=== PATIENT | female | born 1965 | race Caucasian/White ===

== ENCOUNTER → 2022-04-05 14:53 | Outpatient (CLI) | payer MEDICARE, SELFPAY ==
--- NOTE | 2022-04-05 14:55 | CA_ITS ---
APPROVED REPORT EXAM: Comprehensive 2D, Doppler, and color-flow Echocardiogram Extension Course Coordinator: Carol Landry RVT Ht: 5 ft 4 in Wt: 225lbs BSA: 2.06 BP: 106/83 mmHg Indications: A-FIB,CAD,CABG,TAKAYASU DISEASE,HTN,HLD TDS 2D Dimensions LVOT 2.11 cm (M/F) 1.5-2.5 LA Volume 88.90 mL LA Volume Index 43.36 mL/m2 (M/F) 16-34 M-Mode Dimensions RVDd 2.41 cm (0.9-2.6) LA Diam 5.15 cm (1.9-4.0) LVDd 5.53 cm (3.5-5.7) Ao Diam 2.48 cm (2.0-3.7) LVDs 4.16 cm (3.5-5.7) IVSd 0.46 cm (0.6-1.1) PWd 0.72 cm (0.6-1.1) EF (Teich) 48.60% FS 24.80% EDV (Teich) 149.30 mL TAPSE 1.41 (<1.7) ESV (Teich) 76.80 mL LV Diastology MED E' 10.00 (< 7 cm/sec) LAT E' 10.30 (<10 cm/sec) Aortic Valve AO Peak GR. 4.20 mmHg Pulmonary Valve PV Peak Velocity 73.00 (50-150 cm/s) Tricuspid Valve TR P. Velocity 305.00 cm/s RAP Estimate 10.00 mmHg RVSP 47.30 mmHg Left Ventricle Technically difficult study because of the patient factors and poor acoustic windows. Left atrium is moderately enlarged, left ventricle is normal size, estimated ejection fraction approximately 50%, there is abnormal septal motion. Diastolic parameters are inconclusive. Right Ventricle Right atrium and right ventricle moderately enlarged, contractility of the right ventricle is normal. Aortic Valve Aortic valve is thickened and calcified without aortic stenosis aortic insufficiency. Mitral Valve Mitral valve grossly normal, there is mild mitral regurgitation. Tricuspid Valve Tricuspid valve leaflets are minimally thickened, there is moderate to severe tricuspid regurgitation, calculated right ventricular systolic pressure is 47 mmHg. Pulmonic Valve Pulmonic valve is poorly visualized. Great Vessels Aortic root is normal size. Inferior vena cava is normal size with normal inspiratory collapse. Pericardium No significant pericardial effusion noted. Conclusion 1. Biatrial enlargement, normal left ventricular size, estimated ejection fraction approximately 50% with no regional wall motion abnormality, endocardial cells are poorly visualized., There is abnormal septal motion. Diastolic parameters are inconclusive. 2. Moderately enlarged right ventricle with normal contractility. 3. Thickened and calcified aortic valve without aortic stenosis or aortic insufficiency. 4. Mild mitral and moderate to severe tricuspid regurgitation, calculated right ventricular systolic pressure 47 mmHg. 5. No significant pericardial effusion. 6. Inferior cava normal size with normal inspiratory collapse. Electronically signed by : Fidel Duran MD 04/05/2022 20:32:47
== END ==
PROVIDERS: PCP Internal Medicine; Visit Provider Internal Medicine
DX: I11.0 Hypertensive heart disease with heart failure; I25.10 Atherosclerotic heart disease of native coronary artery without angina pectoris; I48.91 Unspecified atrial fibrillation; I50.32 Chronic diastolic (congestive) heart failure; I65.09 Occlusion and stenosis of unspecified vertebral artery; I77.1 Stricture of artery; M31.4 Aortic arch syndrome [Takayasu]; E78.49 Other hyperlipidemia
CPT/HCPCS: 93306

== ENCOUNTER → 2022-04-18 07:57 | Outpatient (CLI) | payer MEDICARE, SELFPAY ==
--- NOTE | 2022-04-18 07:58 | NM_ITS ---
APPROVED REPORT Exam: Nuclear Stress Test Indication: SOB, Abnormal EKG, Afib, CAD, CABG Patient Location: Outpatient Stress Tech: Sania Roman ND Tech:Pebbles Mello, ARRT, RT (R)(N) Ht: 5 ft 4 in Wt: 220 lbs Bra Size: D HR: 85 bpm BP: 111/88 mmHg BSA: 2.04 m2 TID: 1.15 BMI: 37.7 History: SOB, Abnormal EKG, Afib, CAD, CABG Procedure: Patient received a 0.4 mg of intravenous Lexiscan, resting heart rate 85 bpm, resting blood pressure 111/88 mmHg, with Lexiscan maximum heart rate achived was 152 bpm which is Less than 85 % of the maximum predicted heart rate and blood pressure was 111/88 mmHg. With Lexiscan, patient denied any complaint of chest pain. Electrocardiogram Resting electrocardiogram shows A. fib, with Lexiscan less than 1.[address] segment depression noted from the baseline EKG. The EKG portion of the Lexiscan is nondiagnostic. Cardiac Stress and Resting SPECT Images: Cardiac Stress and Resting SPECT images were obtained using technetium 99m Myoview 31.7 mCi stress and 10.05 mCi at rest. Gated SPECT for analysis of segmental wall motion and calculation of the ejection fraction also done. Cardiac stress and rest SPECT images show reversible ischemia involving the anterior and apical wall, computer derived ejection fraction is 49% with mild anterior apical wall hypokinesis, right ventricle is normal size and contractility. Conclusion: 1. The EKG portion of the Lexiscan is nondiagnostic. 2. Scintigraphic evidence of reversible ischemia involving the anterior and apical wall, computer derived ejection fraction is 49% with segmental wall motion abnormality described above, right ventricle is normal size and contractility. 3. Abnormal Lexiscan Myoview study. Electronically signed by : Fidel Duran MD 04/19/2022 12:14:15
--- NOTE | 2022-04-18 10:09 | CA_ITS ---
APPROVED REPORT Exam: Pharmacologic Technologist: Sania Bonilla, Ht: 5 ft 4 in Wt: 225 lbs BSA: 2.06 m2 HR: 88 bpm BP: 111/88 mmHg Medical History Medications: Lisinopril,,,,, Omeprazole,,,,, Aspirin,,,,, Atorvastatin,,,,, Carvedilol,,,,, Effient,,,,, Nitroglycerin,,,,, CiLostazol,,,,, Actemra,,,,, Stress Test Details Test: LEXISCAN Reason for pharmacologic stress test: physical limitation. HR Resting HR: 85 bpm Max Heart Rate (APMHR): 161.913403 bpm Max HR Achieved: 152 bpm Target HR (85% APMHR): 136.191746 bpm % of APMHR: 94.41 Recovery HR: 84 bpm BP Resting BP: 111/88 mmHg Max BP: 111/88 mmHg Recovery BP: 105.0/70.0 mmHg ECG Resting ECG: A-fib, low voltage QRS, NS T wave abns Clinical Exercise duration: 04:01 min Highest Stage Achieved: Exercise capacity: 1.0 METs Stress ECG Conclusion Symptoms: Mild SOA & stomach discomfort, lightheaded. No CP. Arrhythmias/Ectopy: A-fib throughout. ST-T Changes: No significant changes. Conclusion: Unremarkable Lexiscan stress. Myoview images reported separately. Test Summary REST . . . . . . . Resting REST 02:36 . . 85 . 111/ 88 . . Stage 1 01:00 . . 104 . . . . Stage 2 01:00 . . 144 . . . . Stage 3 01:00 . . 128 . 98/ 72 . . Stage 4 01:00 . . 119 . 110/ 66 . . Stage 4 01:01 . . 114 . 110/ 66 . Stop exercise at 04:01 RECOVERY 01:00 . . 111 . . . . RECOVERY 02:00 . . 115 . 106/ 66 . . RECOVERY 03:00 . . 112 . 106/ 66 . . RECOVERY 04:00 . . 104 . 110/ 62 . . RECOVERY 05:00 . . 101 . 110/ 62 . . RECOVERY 06:00 . . 101 . 110/ 62 . . RECOVERY 07:00 . . 97 . 110/ 62 . . RECOVERY 08:00 . . 105 . 110/ 62 . . RECOVERY 09:00 . . 105 . 110/ 62 . . RECOVERY 09:59 . . 105 . 105/ 70 . . Electronically signed by : Fidel Duran MD 04/19/2022 11:40:25
--- NOTE | 2022-04-18 11:18 | HMH.ITSHM ---
Current Home Medications as stated by this patient Eusebia Haney or national sales representative. []TOCILIZUMAB SPIRONOLACTONE RIVAROXABAN OMEPRAZOLE NITRO LISINOPRIL FUROSEMIDE CLOPIDOGREL CARVEDILOL ATORVASTATIN ASA
== END ==
PROVIDERS: PCP Internal Medicine; Visit Provider Internal Medicine
DX: R93.1 Abnormal findings on diagnostic imaging of heart and coronary circulation; I20.8 Other forms of angina pectoris
CPT/HCPCS: 78452; 93017; A9502; J2785

== ENCOUNTER → 2022-04-22 12:22 | Outpatient (CLI) | payer MEDICARE, SELFPAY ==
[2022-04-22 12:38] LABS: MANUAL DIFFERENTIAL MANUAL DIFFERENTIAL (MANUAL DIFF)
[2022-04-22 13:14] LABS: Basophils # 0.1 K/mm3 (0-0.2); Eosinophils # 0.1 K/mm3 (0.0-0.4); Eosinophils % 1.4 % (0.1-12.0); Hematocrit 38.4 % (37.0-47.0); Hemoglobin 12.5 g/dL (12.2-16.2); Lymphocytes # 1.1 K/mm3 (0.7-4.5); Lymphocytes % 24.9 % (10-50); Mean Corpuscular HGB Conc 32.6 g/dL (31.8-35.4); Mean Corpuscular Hemoglobin 28.6 pg (27.0-31.2); Mean Corpuscular Volume 87.9 fl (81-99); Mean Platelet Volume 7.9 fl (7.4-10.4); Monocytes # 0.3 K/mm3 (0.1-1.0); Monocytes % 7.5 % (1.7-9.3); Neutrophils # 2.9 K/mm3 (1.8-7.8); Neutrophils % 65.2 % (37.0-80.0); Platelet Count 315 K/mm3 (142-424); Red Blood Count 4.37 M/mm3 (4.20-5.40); Red Cell Distribution Width 14.1 % (11.5-17.5); White Blood Count 4.5 K/mm3 (4.8-10.8)
[2022-04-22 14:01] LABS: Anion Gap 13.6 mEq/L (5-15); Blood Urea Nitrogen 25 mg/dl (7-17); Calcium 8.7 mg/dl (8.4-10.2); Carbon Dioxide 29 mmol/L (22.0-30.0); Chloride 101 mmol/L (98-107); Estimated Glomerular Filt Rate 73 ml/min (>60); GFR (African American) 89 ML/MIN (>60); Glucose 89 mg/dl (74-100); Potassium 4.6 mmoL/L (3.5-5.1); Sodium 139 mmol/L (136-145)
[2022-04-22 15:02] LABS: Eosinophils % 1 % (0-3); Lymphocytes % 22 % (10-50); Monocytes % 3 % (2-9); Neutrophils % 73 % (42-76); Platelet Estimate Normal; RBC Morphology Normal; Total Cells Counted 100
== END ==
PROVIDERS: PCP Internal Medicine; Visit Provider Internal Medicine
DX: E78.49 Other hyperlipidemia (principal); I11.0 Hypertensive heart disease with heart failure; I20.8 Other forms of angina pectoris; I48.91 Unspecified atrial fibrillation; I50.32 Chronic diastolic (congestive) heart failure; I65.09 Occlusion and stenosis of unspecified vertebral artery; I77.1 Stricture of artery; M31.4 Aortic arch syndrome [Takayasu]
CPT/HCPCS: 36415; 80048; 85007; 85014; 85018; 85048; 85049

== ENCOUNTER 2022-04-24 08:45 | Day surgery (SDC) | payer MEDICARE, SELFPAY ==
[2022-04-24] VITALS (15 sets, daily range): BP systolic 95–146; BP diastolic 60–76; PULSE 72–96; RESP 16–18; TEMP 36.9; O2SAT 95–100; BMI 38.0
--- NOTE | 2022-04-24 07:04 | IR_ITS ---
APPROVED REPORT Patient Location: Outpatient College Archivist: ROD Meadows RT (R) PROCEDURES Left heart catheterization Left ventriculogram Selective coronary angiogram Drug-eluting stent deployment to the ostial proximal left main artery INDICATION Takayasu's arteritis, History of coronary artery bypass surgery, History of multiple left main coronary stents, History of brachytherapy to the left main artery 6 years ago, New onset atrial fibrillation, New onset regional wall motion abnormality in the anterior wall, Abnormal stress test with anterior wall ischemia Informed consent was obtained prior to the procedure. COMPLICATIONS None Estimated Blood Loss: Less than 10 mls TECHNIQUE One percent lidocaine was used to anesthetize the right groin. The right femoral artery was accessed via the Seldinger technique. A 4-Nepalese sheath was placed in the right femoral artery. The JL-4 and JR-4 catheter was also used to perform left heart catheterization left ventriculogram and selective coronary angiogram. At the end the diagnostic angiogram therapeutic heparin was administered giving a therapeutic ACT and the 4 Nepalese sheath was exchanged for a 6 Nepalese sheath. A JR4 guide catheter was placed in the ostial left main artery followed by a Choice PT extra-support wire. Primary stenting could not be performed therefore a 4 mm x 12 mm balloon was used to predilate the stenosis. Following this a 4.5 x 12 mm resolute [place] stent was placed in the distal left main artery projecting back into the left coronary cusp and deployed at 20 janett. A 5 x 12 mm balloon was then advanced and deployed at 24 janett to further post dilate. At the end of the procedure excellent angiograph results were obtained with MARILYN II flow at the beginning of the procedure and MARILYN-3 flow at the end of the procedure. At the end of the procedure the apparatus was removed the sheath was removed and hemostasis was achieved using Perclose device patient was transferred to the postop putting in stable condition ANGIOGRAPHIC RESULTS The left main artery Left main artery has a stent in the ostial proximal mid distal segment. The stent has concentric 90% in-stent restenosis The left anterior descending artery Normal and widely patent The circumflex artery Normal and widely patent The right coronary artery Large dominant normal The MCGREGOR ventriculogram reveals Preserved with anterior wall hypokinesis estimate ejection fraction 55% The left ventricular end-diastolic pressure 10 mmHg IMPRESSION Severe in-stent restenosis within the ostial proximal mid distal left main artery as described above Successful stenting of the left main artery with 1 drug-eluting stent reducing the stenosis to less than 10% Regional wall motion abnormality with preserved ejection fraction Normal left ventricular end-diastolic pressure PLAN 1. Continue Plavix plus aspirin 2. Continue with Xarelto for atrial fibrillation 3. I would like to bring patient back to the hospital in 3 weeks where she will undergo elective cardioversion. I believe now that her left main artery is nonischemic sinus rhythm should be maintained 4. Recommend stress test in 6 weeks. In 6 weeks I would like to see reversal from the abnormal stress test performed last week. This should hopefully give us a normal baseline 5. In 3 months I recommend an additional Lexiscan Myoview. If in-stent restenosis with intimal hyperplasia occurs it should start occurring at 3 months. 6. Recommend stress test in 6 months. If this is normal we can postpone the next stress test until 1 year after this procedure 7. Continue risk factor modification 8. 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
[2022-04-24 13:20] LABS: CATHL Activated Clotting Time > 400 SEC (74-125)
--- NOTE | 2022-04-24 13:52 | P.CONPHA_ITS ---
[facility] Human Resources Operations Manager Discharge Med Modeling Director: Eusebia Haney has received discharge medication counseling on the following medications: ASPIRIN (NEW) PLAVIX CARVEDILOL ATORVASTATIN LISINOPRIL PATIENT VERBALIZED UNDERSTANDING AND HAD NO QUESTIONS AT THIS TIME. -SOFIYA CHAN, KEVIND
== END 2022-04-24 15:30 | disposition home or self-care (01) ==
PROVIDERS: PCP Internal Medicine; Visit Provider Internal Medicine
DX: I11.0 Hypertensive heart disease with heart failure; I25.118 Atherosclerotic heart disease of native coronary artery with other forms of angina pectoris; I48.91 Unspecified atrial fibrillation; I50.32 Chronic diastolic (congestive) heart failure; I65.09 Occlusion and stenosis of unspecified vertebral artery; I77.1 Stricture of artery; M31.4 Aortic arch syndrome [Takayasu]; Z79.01 Long term (current) use of anticoagulants; Z79.899 Other long term (current) drug therapy; I07.1 Rheumatic tricuspid insufficiency; Z95.1 Presence of aortocoronary bypass graft; E78.5 Hyperlipidemia, unspecified
CPT/HCPCS: 85347; 92928; 93459; 99152; 99153; C1725; C1760; C1769; C1876; C1894; C9600; J1644; J2405; Q9967

== ENCOUNTER → 2022-05-02 10:22 | Outpatient (CLI) | payer MEDICARE, SELFPAY ==
[2022-05-02 11:24] LABS: Basophils % 0.3 % (0.1-2.0); Eosinophils # 0.1 K/mm3 (0.0-0.4); Eosinophils % 1.8 % (0.1-12.0); Hematocrit 40.1 % (37.0-47.0); Hemoglobin 12.3 g/dL (12.2-16.2); Lymphocytes # 1.2 K/mm3 (0.7-4.5); Lymphocytes % 26.1 % (10-50); Mean Corpuscular HGB Conc 30.6 g/dL (31.8-35.4); Mean Corpuscular Hemoglobin 27.5 pg (27.0-31.2); Mean Corpuscular Volume 89.7 fl (81-99); Mean Platelet Volume 7.9 fl (7.4-10.4); Monocytes # 0.3 K/mm3 (0.1-1.0); Monocytes % 5.5 % (1.7-9.3); Neutrophils # 3.1 K/mm3 (1.8-7.8); Neutrophils % 66.3 % (37.0-80.0); Platelet Count 255 K/mm3 (142-424); Red Blood Count 4.47 M/mm3 (4.20-5.40); Red Cell Distribution Width 14.7 % (11.5-17.5); White Blood Count 4.6 K/mm3 (4.8-10.8)
[2022-05-02 12:10] LABS: Chloride 102 mmol/L (98-107); Sodium 139 mmol/L (136-145)
[2022-05-02 12:13] LABS: Blood Urea Nitrogen 34 mg/dl (7-17); Estimated Glomerular Filt Rate 73 ml/min (>60); GFR (African American) 89 ML/MIN (>60)
[2022-05-02 12:14] LABS: Calcium 9.3 mg/dl (8.4-10.2); Carbon Dioxide 29 mmol/L (22.0-30.0); Glucose 87 mg/dl (74-100)
== END ==
PROVIDERS: PCP Internal Medicine; Visit Provider Internal Medicine
DX: Z48.811 Encounter for surgical aftercare following surgery on the nervous system (principal)
CPT/HCPCS: 36415; 80048; 85025

== ENCOUNTER 2022-05-13 08:47 | Day surgery (SDC) | payer MEDICARE, SELFPAY ==
[2022-05-13 09:34] VITALS: BMI 37.8
[2022-05-13 09:55] VITALS: BP 124/67; PULSE 80; RESP 20; TEMP 36.6; O2SAT 93
--- NOTE | 2022-05-13 11:03 | ECG_ITS ---
APPROVED REPORT Exam: Resting ECG HR:47 bpm ECG Measurements Heart Rate 47 AXES ID 172 P 52 QRSd 112 QRS 71 QT 451 T 72 QTc 413 Conclusion SINUS BRADYCARDIA LOW QRS VOLTAGE IN PRECORDIAL LEADS [QRS DEFLECTION < 1.0 mV IN CHEST LEADS] INCOMPLETE RIGHT BUNDLE BRANCH BLOCK [90+ ms QRS DURATION, TERMINAL R IN V1/V2, 40+ ms S IN I/aVL/V4/V5/V6] MODERATE T-WAVE ABNORMALITY, CONSIDER ANTERIOR ISCHEMIA [-0.1+ mV T-WAVE IN V3/V4] ABNORMAL ECG UNCONFIRMED REPORT Electronically signed by : Nils Martinez MD 05/13/2022 19:42:51
[2022-05-13 11:05] VITALS: BP 83/48; PULSE 79; RESP 18; O2SAT 100
[2022-05-13 11:20] VITALS: BP 80/43; PULSE 50; RESP 17; O2SAT 100
[2022-05-13 11:36] VITALS: BP 90/49; PULSE 48; RESP 18; O2SAT 100
--- NOTE | 2022-05-20 10:34 | P.PCN_ITS ---
[facility] Cardioversion Cardioversion Date: 05/13/22 (@11am) Provider:: Bean Nolasco MD Procedure Performed:: Electrical cardioversion Diagnosis:: Atrial fibrillation Procedure Summary:: Patient was brought to the cardiac [facility] as an outpatient.? After informed consent was obtained, anesthesia provided sedation and patient received a single 200 J synchronized shock converting her from atrial fibrillation to sinus rhythm.? Patient tolerated the procedure well with no complications. Complications:: None Conculsion:: Successful electrical cardioversion from atrial fibrillation to sinus rhythm.
== END 2022-05-13 11:49 | disposition home or self-care (01) ==
PROVIDERS: PCP Internal Medicine; Visit Provider Internal Medicine
PROC: 5A2204Z Restoration of Cardiac Rhythm, Single (ICD-10-PCS; principal; 2022-05-13 08:00)
DX: I48.91 Unspecified atrial fibrillation (principal)
CPT/HCPCS: 92960; 93005; 99152

== ENCOUNTER → 2022-06-06 11:17 | Outpatient (CLI) | payer MEDICARE, SELFPAY ==
--- NOTE | 2022-06-06 | CA_ITS ---
APPROVED REPORT Exam: Pharmacologic Technologist: Vanessa Hernandez, Ht: 5 ft 4 in Wt: 220 lbs BSA: 2.04 m2 HR: 51 bpm BP: 112/70 mmHg Rhythm: marked sinus aure, low voltage QRS Indications: Afib, SOA Medical History Medical History: HTN, Hyperlipidemia Medications: Lisinopril,,,,, Omeprazole,,,,, Aspirin,,,,, Atorvastatin,,,,, Carvedilol,,,,, XaRELTO,,,,, Plavix,,,,, Aldactone,,,,, Nitroglycerin,,,,, Actemra,,,,, Cardiac Risk Factors: HTN, Hyperlipidemia Stress Test Details Test: LEXISCAN HR Resting HR: 49 bpm Max Heart Rate (APMHR): 161.986189 bpm Max HR Achieved: 77 bpm Target HR (85% APMHR): 136.231741 bpm % of APMHR: 47.83 Recovery HR: 64 bpm BP Resting BP: 112/70 mmHg Max BP: 112/70 mmHg Recovery BP: 102.0/55.0 mmHg ECG Resting ECG: marked sinus aure, low voltage QRS Clinical Exercise duration: 04:00 min Highest Stage Achieved: Exercise capacity: 1.0 METs Stress ECG Conclusion During lexiscan pt experinced SOA, mild stomach discomfort, mild head discomfort. No CP noted. No arrhythmias noted. No significant ST changes. Unremarkable lexiscan stress. Myoview images reported separately. Test Summary REST . . . . . . . Sitting REST . . . . . . . Sitting REST 06:58 . . 49 . 112/ 70 . . Stage 1 01:00 . . 63 . . . . Stage 2 01:00 . . 74 . . . . Stage 3 01:00 . . 68 . 106/ 61 . . Stage 4 01:00 . . 67 . 95/ 65 . Stop exercise at 04:00 RECOVERY 01:00 . . 59 . . . . RECOVERY 02:00 . . 60 . 102/ 55 . . RECOVERY 03:00 . . 61 . 101/ 57 . . RECOVERY 04:00 . . 58 . 97/ 55 . . RECOVERY 05:00 . . 56 . 97/ 55 . . RECOVERY 06:00 . . 56 . 90/ 66 . . RECOVERY 07:00 . . 53 . / . . RECOVERY 07:28 . . 56 . / . . Electronically signed by : Fidel Duran MD 06/07/2022 08:35:54
--- NOTE | 2022-06-06 11:18 | NM_ITS ---
APPROVED REPORT Exam: Nuclear Stress Test Indication: a-fib--hypertension Patient Location: Outpatient Stress Tech: Vanessa MORALES Tech:Kaelyn Lucero ROD RT(R)(N) Ht: 5 ft 4 in Wt: 210 lbs Bra Size: d HR: 49 bpm BP: 112/70 mmHg BSA: 2.00 m2 TID: 1.09 BMI: 36.0 History: a-fib--hypertension Procedure: Patient received a 0.4 mg of intravenous Lexiscan, resting heart rate 49 bpm, resting blood pressure 112/70 mmHg, with Lexiscan maximum heart rate achived was 77 bpm which is Less than 85 % of the maximum predicted heart rate and blood pressure was 112/70 mmHg. With Lexiscan, patient denied any complaint of chest pain. Electrocardiogram Resting electrocardiogram shows sinus rhythm, with Lexiscan there is less than 1.[address] segment depression noted from the baseline EKG. The EKG portion of the Lexiscan is nondiagnostic. Cardiac Stress and Resting SPECT Images: Cardiac Stress and Resting SPECT images were obtained using technetium 99m Myoview 32.2 mCi stress and 10.33 mCi at rest. Gated SPECT analysis of segmental wall motion and calculation of the ejection fraction also done. Cardiac stress and rest SPECT may show reversible ischemia involving the anteroseptal wall, computer derived ejection fraction is 67% with no regional wall motion abnormality, right ventricle is normal size and contractility. Conclusion: 1. The EKG portion of the Lexiscan is nondiagnostic. 2. Scintigraphic evidence of reversible ischemia involving the anteroseptal wall, computer read ejection fraction 67% with no regional wall motion abnormality, right ventricle is normal size and contractility. 3. Abnormal Lexiscan Myoview study. Electronically signed by : Fidel Duran MD 06/07/2022 08:40:00
== END ==
PROVIDERS: PCP Internal Medicine; Visit Provider Nurse Practitioner Family
DX: I07.1 Rheumatic tricuspid insufficiency; I11.0 Hypertensive heart disease with heart failure; I25.10 Atherosclerotic heart disease of native coronary artery without angina pectoris; I48.91 Unspecified atrial fibrillation; I50.32 Chronic diastolic (congestive) heart failure; I65.09 Occlusion and stenosis of unspecified vertebral artery; I77.1 Stricture of artery; M31.4 Aortic arch syndrome [Takayasu]; R06.09 Other forms of dyspnea; R93.1 Abnormal findings on diagnostic imaging of heart and coronary circulation; R94.39 Abnormal result of other cardiovascular function study; E78.49 Other hyperlipidemia
CPT/HCPCS: 78452; 93017; A9502; J2785

== ENCOUNTER 2022-07-01 09:30 | Day surgery (SDC) | payer MEDICARE, SELFPAY ==
[2022-07-01] VITALS (14 sets, daily range): BP systolic 115–146; BP diastolic 51–100; PULSE 42–54; RESP 18; TEMP 36.9; O2SAT 96–100; BMI 37.9
--- NOTE | 2022-07-01 07:02 | IR_ITS ---
APPROVED REPORT Patient Location: Outpatient PROCEDURES Selective coronary angiogram INDICATION Takayasu's arteritis, History of coronary bypass surgery, History of left main stent, High risk abnormal Myoview Informed consent was obtained prior to the procedure. COMPLICATIONS None Estimated Blood Loss: Less than 10 mls TECHNIQUE One percent lidocaine used to anesthetize the right anterior aspect of the wrist. The right radial artery was accessed via the Seldinger technique. A 6 Cymra[place] sheath was placed in the right radial artery. 2.5 mg of verapamil, 800 mcg of nitroglycerin, 1mg Lidocaine and 5000 U Heparin were given through the arterial sheath. The 5 Cymra[place] trap catheter and papa catheter were also used to perform left heart catheterization, left ventriculogram and selective coronary angiogram. At the end of the procedure the sheath was removed good hemostasis was achieved using Traclet band, patient was transferred to the postop holding area in stable condition. ANGIOGRAPHIC RESULTS The left main artery Has a stent in the ostial proximal mid distal segment which has mild concentric in-stent restenosis nothing greater than 30% The left anterior descending artery Widely patent and normal The circumflex artery Nondominant widely patent and normal The right coronary artery Large dominant normal The MCGREGOR ventriculogram reveals Not performed The left ventricular end-diastolic pressure Not measured IMPRESSION In-stent restenosis in the left main artery as described above PLAN 1. Continue medical management 2. Consider cardiac catheterization in 3 to 6 months as in-stent restenosis is anticipated based on patient's history and coexisting Takayasu's arteritis Electronically signed by : Bean Nolasco MD 07/01/2022 13:00:00
[2022-07-01 10:06] LABS: Basophils % 0.4 % (0.1-2.0); Eosinophils # 0.1 K/mm3 (0.0-0.4); Eosinophils % 2.6 % (0.1-12.0); Hematocrit 33.9 % (37.0-47.0); Hemoglobin 11.1 g/dL (12.2-16.2); Lymphocytes % 25.3 % (10-50); Mean Corpuscular HGB Conc 32.8 g/dL (31.8-35.4); Mean Corpuscular Hemoglobin 30.1 pg (27.0-31.2); Mean Corpuscular Volume 91.8 fl (81-99); Mean Platelet Volume 8.2 fl (7.4-10.4); Monocytes # 0.3 K/mm3 (0.1-1.0); Monocytes % 7.8 % (1.7-9.3); Neutrophils # 2.5 K/mm3 (1.8-7.8); Neutrophils % 63.8 % (37.0-80.0); Platelet Count 251 K/mm3 (142-424); Red Blood Count 3.69 M/mm3 (4.20-5.40); Red Cell Distribution Width 15.5 % (11.5-17.5); White Blood Count 3.9 K/mm3 (4.8-10.8)
[2022-07-01 10:14] LABS: Anion Gap 9.9 mEq/L (5-15); Blood Urea Nitrogen 23 mg/dl (7-17); Calcium 8.6 mg/dl (8.4-10.2); Carbon Dioxide 28 mmol/L (22.0-30.0); Chloride 107 mmol/L (98-107); Creatinine Clearance Estimated 107 mL/min (50-200); Estimated Glomerular Filt Rate 64 ml/min (>60); GFR (African American) 78 ML/MIN (>60); Glucose 93 mg/dl (74-100); Potassium 3.9 mmoL/L (3.5-5.1); Sodium 141 mmol/L (136-145)
== END 2022-07-01 15:45 | disposition home or self-care (01) ==
PROVIDERS: PCP Internal Medicine; Visit Provider Internal Medicine
DX: R94.39 Abnormal result of other cardiovascular function study (principal); I25.10 Atherosclerotic heart disease of native coronary artery without angina pectoris; I10 Essential (primary) hypertension; I48.91 Unspecified atrial fibrillation; Z95.1 Presence of aortocoronary bypass graft; Z95.5 Presence of coronary angioplasty implant and graft; T82.855A Stenosis of coronary artery stent, initial encounter; Z79.899 Other long term (current) drug therapy; Z79.01 Long term (current) use of anticoagulants; M31.4 Aortic arch syndrome [Takayasu]; I07.1 Rheumatic tricuspid insufficiency; I77.1 Stricture of artery; Y83.1 Surgical operation with implant of artificial internal device as the cause of abnormal reaction of the patient, or of later complication, without mention of misadventure at the time of the procedure
CPT/HCPCS: 36415; 80048; 85025; 93459; 99152; C1725; C1769; J1644; Q9967